=== PATIENT | male | born 1935 | race Caucasian/White ===

== ENCOUNTER 2017-11-11 06:54 | Emergency (ER) | payer OTHER ==
[~2017-11-11] VITALS: Ht 175.3 cm; Wt 82.6 kg
[~2017-11-11 06:54] MED LIST: PROTONIX40 MG; TOPROL XL25 M1; ULTRACET PO
== END 2017-11-11 09:33 | disposition home or self-care (01) ==
LOC: ER 06:54
DX: T81.31XA Disruption of external operation (surgical) wound, not elsewhere classified, initial encounter (principal); Y84.8 Other medical procedures as the cause of abnormal reaction of the patient, or of later complication, without mention of misadventure at the time of the procedure; Y92.89 Other specified places as the place of occurrence of the external cause

== ENCOUNTER 2019-08-29 19:26 | Emergency (ER) | payer OTHER ==
[~2019-08-29] VITALS: Ht 185.4 cm; Wt 81.6 kg
== END 2019-08-29 21:19 | disposition home or self-care (01) ==
LOC: ER 19:26
DX: S00.11XA Contusion of right eyelid and periocular area, initial encounter (principal); S40.011A Contusion of right shoulder, initial encounter; W18.09XA Striking against other object with subsequent fall, initial encounter; Y93.01 Activity, walking, marching and hiking; Y92.89 Other specified places as the place of occurrence of the external cause; Y99.8 Other external cause status

== ENCOUNTER 2024-06-20 10:05 | Outpatient (CLI) | payer OTHER | END 2024-06-20 10:07 | disposition home or self-care (01) | LOC: NUCLEAR 10:05 | PROVIDERS: ATTEND Psychiatry & Neurology Clinical Neurophysiology | DX: G31.83 Neurocognitive disorder with Lewy bodies (principal); G30.1 Alzheimer's disease with late onset | CPT/HCPCS: 78803; A9557 ==